=== PATIENT | male | born 2000 | race Caucasian/White ===

== ENCOUNTER 2022-08-17 15:09 | Emergency (ER) | payer BC ==
[2022-08-17] MEDS ORDERED: diphenhydrAMINE 25 MG CAP ONE (16:17)
[2022-08-17] MEDS ORDERED: predniSONE 20 MG TAB ONE (16:17)
[2022-08-17] MEDS ORDERED: Famotidine 20 MG TAB ONE (16:19)
== END 2022-08-17 16:35 | disposition home or self-care (01) ==
LOC: CSHERS 15:09
DX: L50.9 Urticaria, unspecified (principal)
CPT/HCPCS: 99282; J7512